=== PATIENT | female | born 1945 | race Two or more races ===

== ENCOUNTER 2025-01-26 13:01 | Emergency (ER) | payer OTHER ==
[~2025-01-26] VITALS: Ht 154.9 cm; Wt 64.4 kg
[2025-01-26] MEDS ORDERED: CLONAZEPAM0.125 MG PO (13:18)
[2025-01-26] MEDS ORDERED: BUPROPION XL450 MG PO (13:18)
[2025-01-26] MEDS ORDERED: METOPROLOL TARTRATE 25 MG TABLET PO ONE (14:15)
[2025-01-26 14:42] LABS: BASO % 0.6 % (0.1-1.2); EOS # 0.07 (0.04-0.54); EOS % 1.4 % (0.7-7.0); LYMPH # 1.20 (1.18-3.74); LYMPH % 24.6 % (19.3-53.1); MEAN PLATELET VOLUME 8.40 fl (9.4-12.4); MONO # 0.38 (0.24-0.82); MONO % 7.8 % (4.7-12.5); NEUT # 3.19 (1.56-6.13); NEUT % 65.4 % (34.0-71.1); RED CELL DISTRIBUTION WIDTH 11.4 % (11.6-14.4)
[2025-01-26 15:28] LABS: ALT/SGPT 25.0 U/L (12-78); AST/SGOT 20.0 U/L (15-37); BILIRUBIN TOTAL 0.4 mg/dL (0.3-1.2); BUN CREA RATIO 16.0 (7.0-25.0); CREATININE SERUM 0.94 mg/dL (0.55-1.02); GFR 57.29; GLOBULINA 3.2 G/DL (2.4-3.5); GLUCOSE FASTING 91.0 mg/dL (65-100); OSMOLALITY SERUM 278.0 MOSM/KG (275-295)
[2025-01-26] MEDS ORDERED: LOPRESSOR25 MG PO (15:45)
== END 2025-01-26 16:04 | disposition home or self-care (01) ==
LOC: ER 13:01
PROVIDERS: General Practice
DX: R00.2 Palpitations (principal)